=== PATIENT | female | born 1945 | race Caucasian/White ===

== ENCOUNTER 2017-06-13 20:08 | Emergency (ER) | payer OTHER, MEDICARE ==
--- NOTE | 2017-06-13 20:12 | PDOC ---
History of Present Illness - General History Source: Patient Exam Limitations: No Limitations <Milind Dangelo - Last Filed: 06/13/17 21:20> - General History Source: Patient Exam Limitations: No Limitations <Teresa Taylor I - Last Filed: 06/13/17 21:54> - General Chief Complaint: Chest Pain Stated Complaint: CHEST PAIN Time Seen by Provider: 06/13/17 20:12 - History of Present Illness Initial Comments: 06/13/17 20:38 The patient is a 71 year old female with a significant past medical history of hypothyroid, HTN, intermittent rapid AFIB (continuous monitoring chip put in) who presents to the ED via EMS with pleuritic chest pain over the lateral left lower ribs that began 45 mins prior to arrival. Patient states she experiencing the pain when moving around and when taking a deep breath. She denies any alleviating factors. Patient states she had taken 4 baby aspirin all day. Patient denies chest pain, SOB, dizziness, diaphoresis, fever, chills, nausea, vomiting, diarrhea. Denies dysuria, frequency, hematuria. Patient states her chip monitoring her AFIB was reading two episodes of rapid AFIB, one brief and one intermittent. She was subsequently put on beta ann by her Sod Cutter at [place] [address] Bell yesterday (took 1 pill today). Sod Cutter: Dr. Bell: [phone] PAST MEDICAL HISTORY: hypothyroid, HTN, intermittent rapid AFIB (continuous monitoring chip put in) PAST SURGICAL HISTORY: no significant history FAMILY HISTORY: no pertinent history SOCIAL HISTORY: Pt lives with family and is unemployed. MEDICATIONS: reviewed ALLERGIES: As per nursing notes Adult ROS General: No fevers or chills, no weakness, no weight loss HEENT: No change in vision. No sore throat,. No ear pain CardioVascular: + left sided pleuritic chest pain No shortness of breath Respiratory:No cough, or wheezing. Gastrointestinal: no nausea, vomiting, diarrhea or constipation, No rectal bleeding Genitourinary: No dysuria, hematuria, or frequency Musculoskeletal: No joint or muscle pain or swelling Neurologic: No headache, vertigo, dizziness or loss of consciousness Psychiatric: nor depression Skin: No rashes or easy bruising Endocrine: no increased thirst or abnormal weight change Allergic: no skin or latex allergy All other systems reviewed and normal Adult Exam: General: Well-nourished well-developed individual, no acute distress HEENT: Throat: Normal, tonsils normal, no erythema or exudate Neck: Supple, no meningeal signs, no lymphadenopathy Eyes:Pupils equal reactive and round, extraocular motion intact Chest: Pleuritic chest pain is reproduced on examination. Cardiac: S1-S2 normal, regular rate and rhythm, no murmurs rubs or gallops Respiratory: Lungs clear to auscultation bilateral Abdomen: Soft, nondistended, normal bowel sounds, nontender to palpation diffusely Extremities: Warm, dry, no cyanosis, clubbing, or edema Skin: No rashes Neuro: Alert and oriented x3, nonfocal exam, grossly intact, normal gait Psych: Normal mood and affect (Milind Dangelo) 06/13/17 21:51 A portion of this note was documented by scribe services under my direction. I have reviewed the details of the note, within reason, and agree with the documentation. The case summary and management plan written by me. Assessment and plan: This is a 71-year-old female who comes in complaining of pruritic this left-sided chest pain. Patient has no other complaints other than she was noted to be bradycardic here in the emergency room with a heart rate in the 40s. Patient said she was recently started on a beta ann as she had several episodes of rapid A. fib. Patient's chest x-ray did show a probable early infiltrate in the left base most likely viral in etiology as she has no fever, and no white count or left shift. However she was started on azithromycin. I also called her 3d specialist and discussed her workup with her 3d specialist who recommended that she Take one half of her propranolol tomorrow and she will follow-up with her on Thursday. Patient discharged home. (Teresa Taylor I) Past History <Milind Dangelo - Last Filed: 06/13/17 21:20> <Teresa Taylor I - Last Filed: 06/13/17 21:54> - Past Medical History Allergies/Adverse Reactions: Allergies Allergy/AdvReac Type Severity Reaction Status Date / Time No Known Allergies Allergy Verified 06/13/17 20:09 Home Medications: Ambulatory Orders Aspirin [Aspirin EC] 81 mg PO DAILY 06/13/17 Azithromycin [Zithromax 250mg Tablets -] 250 mg PO DAILY #4 tab 06/13/17 Hydrochlorothiazide [Hctz -] 25 mg PO DAILY 06/13/17 Levothyroxine [Synthroid -] 100 mcg PO DAILY 06/13/17 Losartan Potassium [Cozaar] 100 mg PO DAILY 06/13/17 Propranolol HCl 20 mg PO DAILY 06/13/17 - Vital Signs Last Vital Signs Temp Pulse Resp BP Pulse Ox 98.1 F 49 L 16 120/58 98 06/13/17 20:08 06/13/17 20:22 06/13/17 20:22 06/13/17 20:08 06/13/17 20:22 Heart Score/ECG Review <Milind Dangelo - Last Filed: 06/13/17 21:20> <Teresa Taylor I - Last Filed: 06/13/17 21:54> - ECG Intrepretation Comment:: 06/13/17 21:21 Sinus bradycardia, 48 bpm. Low voltage QRS Incomplete right bundle branch block Borderline ECG. (Milind Dangelo) ED Treatment Course - LABORATORY CBC & Chemistry Diagram: 06/13/17 20:30 06/13/17 20:30 <Milind Dangelo - Last Filed: 06/13/17 21:20> - LABORATORY CBC & Chemistry Diagram: 06/13/17 20:30 06/13/17 20:30 <Teresa Taylor I - Last Filed: 06/13/17 21:54> - ADDITIONAL ORDERS Additional order review: Laboratory Results 06/13/17 06/13/17 20:30 20:30 Sodium 138 Potassium 3.9 Chloride 104 Carbon Dioxide 27 Anion Gap 7 L BUN 25 H Creatinine 1.0 Creat Clearance w eGFR 54.81 Random Glucose 104 Calcium 9.1 Total Bilirubin 0.6 AST 24 ALT 20 Alkaline Phosphatase 42 Creatine Kinase 195 H Creatine Kinase Index 1.1 CK-MB (CK-2) 2.2 Troponin I < 0.03 L Total Protein 6.4 Albumin 3.9 06/13/17 20:30 RBC 4.34 MCV 85.7 MCHC 34.4 RDW 13.2 MPV 10.6 Neutrophils % 56.1 Lymphocytes % 30.4 Monocytes % 8.2 Eosinophils % 5.1 H Basophils % 0.2 - RADIOLOGY Radiology Studies Ordered: Category Date Time Status CHEST X-RAY PORTABLE* [RAD] Stat Radiology 06/13/17 20:35 Taken *DC/Admit/Observation/Transfer <Milind Dangelo - Last Filed: 06/13/17 21:20> <Teresa Taylor I - Last Filed: 06/13/17 21:54> Diagnosis at time of Disposition: Pneumonia Qualifiers: Pneumonia type: due to unspecified organism Laterality: left Lung location: lower lobe of lung Qualified Code(s): J18.1 - Lobar pneumonia, unspecified organism; J18.1 - Lobar pneumonia, unspecified organism; J18.1 - Lobar pneumonia , unspecified organism - Discharge Dispostion Disposition: HOME Condition at time of disposition: Stable - Prescriptions Prescriptions: Azithromycin [Zithromax 250mg Tablets -] 250 mg PO DAILY #4 tab - Referrals Referrals: Lissa Azul MD [Primary Care Provider] - - Patient Instructions Additional Instructions: Get the prescription for azithromycin filled and take your next dose tomorrow night take it once a day for the next 4 nights. Call your 3d specialist on Thursday and let your 3d specialist know how you are doing. Return to the emergency department immediately with ANY new, persistent or worsening symptoms. Continue any medications as previously prescribed by your physician. You should follow up with your primary doctor as soon as possible regarding today's emergency department visit. . Please make sure your doctor reviews the results of your emergency evaluation. Thank you for coming to the Emergency Department today for your care. It was a pleasure to see you today. Please note that your evaluation is INCOMPLETE until you follow-up with your doctor. - Attestations Scribe Attestion: 06/13/17 20:47 Documentation prepared by Milind Dangelo, acting as medical device engineer for Teresa Taylor MD. (Milind Dangelo)
[2017-06-13 20:22] VITALS: BP 120/58; PULSE 49; TEMP 98.1; BMI 29.0
[2017-06-13 20:55] LABS: BASOPHIL 0.2 % (0-2.0); EOSINOPHIL 5.1 % (0-4.5); MCH 29.5 pg (25.7-33.7); MCHC 34.4 g/dl (32.0-36.0); MEAN CELL VOLUME 85.7 fl (80-96); MEAN PLT VOLUME 10.6 fl (7.5-11.1); NEUTROPHILS 56.1 % (42.8-82.8); PLATELET COUNT 231 K/MM3 (134-434); RDW 13.2 % (11.6-15.6); WHITE BLOOD COUNT 8.8 K/mm3 (4.0-10.8)
[2017-06-13 21:04] LABS: ALBUMIN 3.9 g/dl (3.5-5.0); ALK PHOS 42 U/L (32-92); ANION GAP 7 (8-16); BILIRUBIN,TOTAL 0.6 mg/dl (0.2-1.0); CALCIUM 9.1 mg/dl (8.4-10.2); CO2 27 mmol/L (22-28); CPK 195 IU/L (26-192); GLUCOSE,RANDOM 104 mg/dl (74-106); SGOT/AST 24 U/L (10-42); SGPT/ALT 20 U/L (10-40); TOT PROT 6.4 g/dl (6.4-8.3)
[2017-06-13 21:17] LABS: TROPONIN I (DFP) < 0.03 ng/ml (0.03-0.50)
[2017-06-13] MEDS ORDERED: AZITHROMYCIN 250 MG TABLET PO ONE (21:48)
[2017-06-13] MEDS ORDERED: AZITHROMYCIN 250 MG TABLET ONE (21:51)
--- NOTE | 2017-06-14 16:42 | EKG ---
Test Reason : Blood Pressure : / mmHG Vent. Rate : 048 BPM Atrial Rate : 048 BPM P-R Int : 158 ms QRS Dur : 100 ms QT Int : 486 ms P-R-T Axes : 043 -20 011 degrees QTc Int : 434 ms SINUS BRADYCARDIA LOW VOLTAGE QRS RSR' OR QR PATTERN IN V1 SUGGESTS RIGHT VENTRICULAR CONDUCTION DELAY BORDERLINE ECG NO PREVIOUS ECGS AVAILABLE Confirmed by NONA CALDERA MD ([id number]) on 06/14/2017 4:42:21 PM Referred By: MARIYA DOWD Confirmed By:NONA CALDERA MD
== END 2017-06-13 21:58 | disposition home or self-care (01) ==
LOC: FER 20:08
DX: J18.1 Lobar pneumonia, unspecified organism (principal); E03.9 Hypothyroidism, unspecified; I10 Essential (primary) hypertension; I48.91 Unspecified atrial fibrillation
CPT/HCPCS: 36415; 71010-TC; 80053; 82550; 82553; 84484; 85025; 93005; 99285-25